=== PATIENT | female | born 1975 | race Caucasian/White ===

== ENCOUNTER 2017-09-24 13:35 | Emergency (ER) | payer OTHER ==
[2017-09-24 15:12] VITALS: BP 113/69
--- NOTE | 2017-09-24 15:28 | ED ---
Skin Complaint - HPI Summary HPI Summary: 41-year-old female presents with rash on bilateral legs for the past week. She states she's been outside more. She denies any new products. She states the rash started on her right leg since spread to her other leg. States there is itchy. She has been using Benadryl and hydrocortisone with some relief. She denies any fevers. She has never had this rash before. She denies any tick exposure. She denies any chills body aches or fatigue. - History of Current Complaint Hx Last Menstrual Period: 09/11/2017 Pain Intensity: 0 <Anjelica Hernandez - Last Filed: 09/24/17 16:01> <Laci Rosales - Last Filed: 09/24/17 19:31> - History of Current Complaint Chief Complaint: [facility] Time Seen by Provider: 09/24/17 15:21 Stated Complaint: RASH - Allergy/Home Medications Allergies/Adverse Reactions: Allergies Allergy/AdvReac Type Severity Reaction Status Date / Time Sulfa (Sulfonamide Allergy Unknown Verified 09/24/17 15:12 Antibiotics) Reaction Details Home Medications: Home Medications Ibuprofen [Advil] 200 mg PO 09/24/17 [History] Sertraline HCl [Zoloft] 50 mg PO 09/24/17 [History] diphenhydrAMINE HCl [Benadryl Allergy] 09/24/17 [History] PMH/Surg Hx/FS Hx/Imm Hx Endocrine/Hematology History: Denies: Hx Diabetes, Hx Thyroid Disease Cardiovascular History: Denies: Hx Hypertension Psychiatric History: Reports: Hx Anxiety, Hx Depression Infectious Disease History: No Infectious Disease History: Denies: Traveled Outside the [place] in Last 30 Days - Family History Known Family History: Negative: Diabetes - Social History Alcohol Use: Weekly Substance Use Type: Reports: None Smoking Status (MU): Never Smoked Tobacco <Anjelica Hernandez - Last Filed: 09/24/17 16:01> Review of Systems Negative: Fever Negative: Chest Pain Negative: Shortness Of Breath Positive: Rash All Other Systems Reviewed And Are Negative: Yes <Anjelica Hernandez - Last Filed: 09/24/17 16:01> Physical Exam Triage Information Reviewed: Yes Vital Signs On Initial Exam: Initial Vitals Temp Pulse Resp BP Pulse Ox 98.3 F 68 16 113/69 100 09/24/17 15:06 09/24/17 15:06 09/24/17 15:06 09/24/17 15:06 09/24/17 15:06 Vital Signs Reviewed: Yes Appearance: Positive: Well-Appearing Skin: Positive: Warm, Dry, Other - urtiacaria type rash with some vesciles on bilateral thighs, right arm Head/Face: Positive: Normal Head/Face Inspection Eyes: Positive: Normal, Conjunctiva Clear Respiratory/Lung Sounds: Positive: Clear to Auscultation, Breath Sounds Present Cardiovascular: Positive: Normal, RRR Musculoskeletal: Positive: Normal Neurological: Positive: Normal Psychiatric: Positive: Normal <Anjelica Hernandez - Last Filed: 09/24/17 16:01> Vital Signs On Initial Exam: Initial Vitals Temp Pulse Resp BP Pulse Ox 98.3 F 68 16 113/69 100 09/24/17 15:06 09/24/17 15:06 09/24/17 15:06 09/24/17 15:06 09/24/17 15:06 <Laci Rosales - Last Filed: 09/24/17 19:31> Diagnostics - Vital Signs Vital Signs Temp Pulse Resp BP Pulse Ox 09/24/17 15:06 98.3 F 68 16 113/69 100 <Anjelica Hernandez - Last Filed: 09/24/17 16:01> - Vital Signs Vital Signs Temp Pulse Resp BP Pulse Ox 09/24/17 15:06 98.3 F 68 16 113/69 100 <Laci Rosales - Last Filed: 09/24/17 19:31> Course/Dx - Course Course Of Treatment: 41-year-old female presents with rash on bilateral legs for the past week. She states she's been outside more. She denies any new products. She states the rash started on her right leg since spread to her other leg. States there is itchy. She has been using Benadryl and hydrocortisone with some relief. She denies any fevers. She has never had this rash before. She denies any tick exposure. She denies any chills body aches or fatigue. on exam has urticaria like rash with some vesciles almost like poision isi. will treat as contact dermatitis with steriod. patient understand and agrees with plan. - Differential Diagnoses - Skin Complaint Differential Diagnoses: Cellulitis, Contact Dermatitis, Poison Isi, Poison [place] <Anjelica Hernandez - Last Filed: 09/24/17 16:01> <Laci Rosales - Last Filed: 09/24/17 19:31> - Diagnoses Provider Diagnoses: Rash Discharge - Sign-Out/Discharge Documenting (check all that apply): Discharge/Admit/Transfer - Billing Disposition and Condition Condition: GOOD Disposition: Home <Anjelica Hernandez - Last Filed: 09/24/17 16:01> - Billing Disposition and Condition Condition: GOOD Disposition: Home <Laci Rosales - Last Filed: 09/24/17 19:31> - Discharge Plan Condition: Good Disposition: HOME Prescriptions: methylPREDNISolone [Medrol Dosepak 4 MG*] 4 mg PO .SEE MARISA INSTRUCTION #1 packet Patient Education Materials: Contact Dermatitis (ED) Referrals: Georgina Sanchez MD [Primary Care Provider] - Additional Instructions: Apply hydrocortisone to area continue benadryl add on calamine lotion for itching Take steroid package as written on package Follow up with primary Return to ED if develop any new or worsening symptoms Per institutional requirements, I have reviewed the chart, however, I was not consulted specifically or made aware of this patient by the above midlevel provider. I did not personally evaluate, interact with , or disposition this patient.
== END 2017-09-24 15:30 | disposition home or self-care (01) ==
LOC: UCEAST 13:35
DX: R21 Rash and other nonspecific skin eruption (principal); F41.9 Anxiety disorder, unspecified; F32.9 Major depressive disorder, single episode, unspecified; Z79.899 Other long term (current) drug therapy; Z88.2 Allergy status to sulfonamides
CPT/HCPCS: 99212; G0463